=== PATIENT | female | born 1945 ===

== ENCOUNTER 2019-01-30 17:41 | Inpatient (IN) | payer OTHER ==
[~2019-01-30] VITALS: Ht 162.6 cm; Wt 67.1 kg
[2019-01-30] MEDS ORDERED: COZAAR25 MG (17:50)
[2019-01-30] MEDS ORDERED: CARVEDILOL3.125 MG (17:50)
[2019-01-30] MEDS ORDERED: ASA81 MG (17:51)
[2019-02-09] MEDS ORDERED: NORFLEX100MG PO (14:23)
[2019-02-09] MEDS ORDERED: CARVEDILOL3.125 MG PO (14:24)
[2019-02-09] MEDS ORDERED: AMLODIPINE BESY10 MG PO (14:24)
[2019-02-09] MEDS ORDERED: CYMBALTA60 MG PO (14:25)
[2019-02-09] MEDS ORDERED: GABAPENTIN600 MG PO (14:25)
[2019-02-09] MEDS ORDERED: HYZAAR 50-12.51 EACH PO (14:26)
== END 2019-02-09 19:53 | disposition home or self-care (01) | DRG 824 ==
LOC: ER 17:41 → MEDJ 01-31 11:05
PROVIDERS: ADMIT Internal Medicine
PROC: BR39ZZZ Magnetic Resonance Imaging (MRI) of Lumbar Spine (ICD-10-PCS; 2019-02-01)
PROC: BR37ZZZ Magnetic Resonance Imaging (MRI) of Thoracic Spine (ICD-10-PCS; 2019-02-01)
PROC: BB24Y0Z Computerized Tomography (CT Scan) of Bilateral Lungs using Other Contrast, Unenhanced and Enhanced (ICD-10-PCS; 2019-02-02)
PROC: 0QB33ZX Excision of Left Pelvic Bone, Percutaneous Approach, Diagnostic (ICD-10-PCS; principal; 2019-02-07)
DX: C90.00 Multiple myeloma not having achieved remission (principal); M84.48XA Pathological fracture, other site, initial encounter for fracture; M89.58 Osteolysis, other site; R79.89 Other specified abnormal findings of blood chemistry; I10 Essential (primary) hypertension; R39.2 Extrarenal uremia; M48.061 Spinal stenosis, lumbar region without neurogenic claudication; F06.30 Mood disorder due to known physiological condition, unspecified
CPT/HCPCS: 72146; 72148